=== PATIENT | female | born 1970 | race Asian ===

== ENCOUNTER → 2017-02-01 | Outpatient (CLI) | payer OTHER ==
--- NOTE | 2017-02-01 14:09 | REP ---
DIGITAL SCREENING BILATERAL MAMMOGRAPHY WITH CAD: Comparison mammography is from January 15, 2014 and December 11, 2013. FINDINGS: There is a well-defined nodular neodensity projecting in the upper outer quadrant of the right breast today measuring 1.5 cm in greatest diameter. This merits further evaluation. The previous study from 2013 showed a similar finding in the inferomedial quadrant of the right breast which turned out to be a cyst on ultrasound. The remainder of the right breast and the entirety of the left breast are unchanged and otherwise unremarkable. Breast parenchyma is heterogeneously dense in a pattern which inhibits the sensitivity of mammography. No other suspicious mammographic findings. IMPRESSION: BI-RADS category 0 incomplete breast imaging. Nodular 1.5 cm neodensity upper outer quadrant right breast merits further evaluation. Diagnostic right breast mammography and focused right breast sonography recommended. BI-RADS/ACR category 0 mammogram, incomplete. Additional imaging and/or prior images are needed before a final assessment can be assigned. This mammogram was interpreted with the aid of an FDA-approved computer-aided detection system. The patient states that she/he has not had a clinical breast exam in over a year. The patient letter being requested is M0, dense . Signed by Denis Maharaj MD 02/01/2017 03:07 P
== END ==
LOC: M RAD 11:39
PROVIDERS: ATTEND Internal Medicine
DX: Z12.31 Encounter for screening mammogram for malignant neoplasm of breast (principal)

== ENCOUNTER → 2017-04-14 | Outpatient (CLI) | payer OTHER ==
--- NOTE | 2017-04-14 13:51 | REP ---
DIAGNOSTIC MAMMOGRAM RIGHT BREAST WITH RIGHT BREAST ULTRASOUND: Multiple spot compression views are performed of the right breast and correlated with the recent mammogram of 02/01/2017. The spot compression views confirm the presence of a nodule in the upper outer quadrant of the right breast measuring about 1.5 cm in diameter. The majority of the margins appear fairly well defined and smoothly marginated. It is approximately 7 cm from the nipple. Real-time sonographic evaluation of the right breast is performed in the upper outer quadrant. There appears to be a cyst at 12 o'clock measuring 7 mm in diameter, near the nipple. A cyst at 10 o'clock measures 4 mm in diameter, approximately 2 cm from the nipple. A hypoechoic nodule appears well defined located at 9 o'clock, measuring 6 x 5 x 7 mm. This is not convincingly a cyst and is located about 2 cm from the nipple. There is dense fibroglandular tissue. No other cystic or solid nodule is seen. IMPRESSION: BI-RADS/ACR category 4 mammogram. Suspicious abnormality - biopsy should be considered. Usually requires biopsy. ACR 4 suspicious. There does appear to be a persistent nodule about 1.5 cm in diameter in the upper outer quadrant of the right breast. No definite sonographic correlate is seen. Recommend sterotactic biopsy. Also sonographically at 9 o'clock there is a 7 mm hypoechoic nodule which is not definitely a cyst. Ultrasound guided biopsy of that nodule at 9 o'clock is recommended. The patient letter being requested is M4. Signed by Niranjan Jones MD 04/15/2017 09:12 A
== END ==
LOC: M RAD 10:56
PROVIDERS: ATTEND Internal Medicine
DX: R92.8 Other abnormal and inconclusive findings on diagnostic imaging of breast (principal)
CPT/HCPCS: 76642; G0206

== ENCOUNTER → 2017-06-17 | Outpatient (CLI) | payer OTHER ==
[~2017-06-17] MED LIST: LIDOCAINE 1% MDV 20ML VIAL As Ordered
== END ==
LOC: M RADPRO 12:24
DX: N63.10 Unspecified lump in the right breast, unspecified quadrant (principal)
CPT/HCPCS: 19083

== ENCOUNTER 2020-03-30 13:37 | Emergency (ER) | payer OTHER ==
[~2020-03-30] VITALS: Ht 147.3 cm; Wt 53.5 kg
[2020-03-30] MEDS ORDERED: methylPREDNISolone 125MG 2ML VIAL IM ONE (14:30)
[2020-03-30] MEDS ORDERED: KETOROLAC 60MG 2ML VIAL IM ONE (14:30)
[2020-03-30] MEDS ORDERED: LIDOCAINE 5% (LIDODERM) PATCH TD ONE (14:30)
--- NOTE | 2020-03-30 14:42 | REP ---
INDICATION: right hip pain COMPARISON: None. TECHNIQUE: AP and frog-lateral views of the right hip FINDINGS: Generalized age-related changes are appreciated without overt osteoarthritic or significant degenerative changes. No evidence for acute or healed injury. Surrounding soft tissues are normal. IMPRESSION: Generalized age-related changes. <Electronically signed by Ricardo Bird > 03/30/20 [id number]
[2020-03-30] MEDS ORDERED: IBUP80TA PO (15:18)
[2020-03-30] MEDS ORDERED: LIDO5DIS41 TOP (15:18)
[2020-03-30 15:24] VITALS: BP 125/84
[2020-03-30] MEDS ORDERED: **NOTE PATIENT COMMENT** MISC XX SCH (21:00)
== END 2020-03-30 15:38 | disposition home or self-care (01) ==
LOC: M ED 13:37
DX: M54.5 Low back pain (principal); M79.604 Pain in right leg
CPT/HCPCS: 73502; 99283; J1885; J2930

== ENCOUNTER → 2020-11-25 | Outpatient (CLI) | payer OTHER ==
[~2020-11-25] MED LIST changes: +IBUP80TA PO; +LIDO5DIS41 TOP; -LIDOCAINE 1% MDV 20ML VIAL As Ordered
--- NOTE | 2020-11-25 10:45 | REP ---
INDICATION: SCREENING MAMMO. COMPARISON: Multiple. No prior DBT images for review. The latest prior bilateral digital examination 02/01/2017. TECHNIQUE: Digital screening mammography was carried out bilaterally in the CC and MLO projections using both 2D and 3D modalities and compared to the prior exams. By history, the patient has no complaints of a palpable breast abnormality or other significant breast complaints. FINDINGS: The breasts are unchanged in size and shape. Once again, dense heterogenous somewhat nodular fibroglandular elements are seen bilaterally to such a degree that the sensitivity of the mammogram in detecting cancers decreased. In the right breast upper outer quadrant there is a near round rica density and having a similar appearance to that seen on the 02/01/2017 mammogram. Post cyst aspiration CC and MLO views of the right breast obtained 06/17/2017 showed disappearance of the lesion consistent with aspiration of a simple cyst. No other suspicious features are seen in either breast. There is no skin thickening or nipple retraction. There are no suspicious calcifications. The Volpara volumetric breast density pattern is C. IMPRESSION: BIRADS/ACR category 0 mammogram. There is a nodular density seen in the right breast upper outer quadrant as described above and for which diagnostic digital magnified spot compression views recommended in the CC and MLO projections along with ultrasonography. This patient's Tyrer-Cuzick lifetime breast cancer risk assessment score is 7.5%. The patient states she had a clinical breast exam in over a year. The patient letter being requested is M0. RECOMMENDATION: As above <Electronically signed by Steven Lawson > 11/25/20 [id number]
== END ==
LOC: M WHC 09:52
PROVIDERS: ATTEND Family Medicine
DX: Z12.31 Encounter for screening mammogram for malignant neoplasm of breast (principal)

== ENCOUNTER → 2020-12-23 | Outpatient (CLI) | payer OTHER ==
--- NOTE | 2020-12-23 14:45 | REP ---
INDICATION: RIGHT BREAST ADD VIEWS. COMPARISON: 11/25/2020 as well as other prior exams. TECHNIQUE: Spot compression views right breast performed. Focused right breast ultrasound performed. FINDINGS: A persistent well-defined, smoothly marginated nodule is seen in the outer right breast posteriorly. This measures approximately 1.4 cm in diameter. Focused right breast ultrasound performed. In the upper-outer quadrant of the right breast there is a simple cyst measuring 1.3 cm in diameter. Elastography interrogation demonstrates average KP a value 15.3. IMPRESSION: BIRADS/ACR category 2, benign. A persistent smoothly marginated nodule in the upper outer quadrant of the right breast corresponds to a simple cyst by ultrasound and is benign. This mammogram was interpreted with the aid of an FDA-approved computer-aided detection system. The patient letter being requested is M 1. RECOMMENDATION: Repeat screening mammography recommended 1 year (for women over 40). <Electronically signed by Niranjan Jones > 12/23/20 [id number]
== END ==
LOC: M WHC 13:05
PROVIDERS: ATTEND Family Medicine
DX: R92.8 Other abnormal and inconclusive findings on diagnostic imaging of breast (principal); N60.01 Solitary cyst of right breast
CPT/HCPCS: 76642; 77065; G0279

== ENCOUNTER → 2021-10-19 | Outpatient (REF) | payer OTHER | LOC: M WUC 17:38 | PROVIDERS: ATTEND Physician Assistant | DX: R50.9 Fever, unspecified (principal) ==

== ENCOUNTER → 2022-07-06 | Outpatient (CLI) | payer OTHER | LOC: M WHC 08:53 | PROVIDERS: ATTEND Family Medicine | DX: Z12.31 Encounter for screening mammogram for malignant neoplasm of breast (principal) ==

== ENCOUNTER → 2024-02-21 | Outpatient (CLI) | payer OTHER | LOC: M WHC 12:20 | PROVIDERS: ATTEND Family Medicine | DX: Z12.31 Encounter for screening mammogram for malignant neoplasm of breast (principal) ==